=== PATIENT | female | born 1995 ===

== ENCOUNTER 2017-10-24 20:29 | Inpatient (IN) | payer OTHER ==
[~2017-10-24] VITALS: Ht 154.9 cm; Wt 54.4 kg
[~2017-10-24 20:29] MED LIST: PRENATABS RX T1 EACH
[2017-10-24] MEDS ORDERED: FOLIC ACID1 MG PO (20:35)
[2017-10-26] MEDS ORDERED: FEOSOL325 MG PO (03:12)
== END 2017-10-26 16:24 | DRG 775 ==
LOC: OBS/DEL 20:29 → LDR 20:49 → EDBD 20:49 → OBS/DEL 20:49 → OB/GYN 10-25 00:25
PROC: 4A1HXCZ Monitoring of Products of Conception, Cardiac Rate, External Approach (ICD-10-PCS; 2017-10-24)
PROC: 10E0XZZ Delivery of Products of Conception, External Approach (ICD-10-PCS; principal; 2017-10-25)
PROC: 0W8NXZZ Division of Female Perineum, External Approach (ICD-10-PCS; 2017-10-25)
PROC: 4A033R1 Measurement of Arterial Saturation, Peripheral, Percutaneous Approach (ICD-10-PCS; 2017-10-25)
DX: O99.013 Anemia complicating pregnancy, third trimester (principal); Z3A.38 38 weeks gestation of pregnancy; Z37.0 Single live birth